=== PATIENT | female | born 2000 | race Caucasian/White ===

== ENCOUNTER 2021-08-23 18:53 | Emergency (ER) | payer SELFPAY ==
[2021-08-23 18:55] VITALS: BP 118/69; PULSE 64; RESP 18; TEMP 35.8; O2SAT 98
--- NOTE | 2021-08-23 19:18 | PC.NURSE ---
Assisted Dr. Hough with rectal exam.
[2021-08-23 19:28] VITALS: BP 119/70; PULSE 63; RESP 16; O2SAT 100
--- NOTE | 2021-08-23 19:32 | ED.GENADULT ---
HPI - General Adult General Chief complaint: Unspecified Stated complaint: Abd Pain, Nausea Time Seen by Provider: 08/23/21 19:11 Source: patient History of Present Illness HPI narrative: Patient presents with rectal pain. Reports a history of skin tags and hemorrhoids. She was previously evaluated approximately 3 years ago and was instructed to further work[facility]up at [facility] at that time. This current episode has been going on for approximately 3 days. Shortness pain around her rectum sharp constant worse with having a bowel movement, no radiation. She denies any bloody stools denies any nausea vomiting or fevers. Denies any abdominal pain Related Data Allergies Allergy/AdvReac Type Severity Reaction Status Date / Time No Known Allergies Allergy Verified 08/23/21 19:30 Review of Systems Review of Systems: CONSTITUTIONAL: Denies fever, chills, or sweats. EYES: Denies visual changes, redness, or discharge. ENT: Denies rhinorrhea, congestion, sore throat, or otalgia. CARDIOVASCULAR: Denies chest pain, palpitations, or edema. RESPIRATORY: Denies cough or dyspnea. GASTROINTESTINAL: Denies abdominal pain, nausea, vomiting, or diarrhea. GENITOURINARY: Denies dysuria or hematuria. SKIN: Denies rash or itching. MUSCULOSKELETAL: Denies back pain, joint pain, or myalgia. NEUROLOGIC: Denies headache, numbness, dizziness, or weakness. PSYCHIATRIC: Denies anxiety or depression. All systems reviewed & are unremarkable except as noted in HPI and below PMFSH Past Medical History Medical History (Updated 08/23/21 @ 19:39 by Chava Hough MD) Acute hemorrhoid Social History Social History (Updated 08/23/21 @ 19:34 by Chava Hough MD) Substance use type: does not use Exam Narrative: GENERAL: Well-appearing, well-nourished, and in no acute distress. HEAD: Normocephalic, atraumatic. EYES: PERRLA and EOMI. ENT: Nares clear, no rhinorrhea or epistaxis. Mucous membranes moist. NECK: Supple. No masses. No JVD ABDOMEN: Soft, nontender, nondistended, normal active bowel sounds. RECTAL: Multiple large tender hemorrhoids nonthrombosed. EXTREMITIES: Normal range of motion. No edema. SKIN: Warm, dry, no rash. NEURO: No focal deficits. Alert and oriented x3. PSYCH: Normal mood and affect. Course Vital Signs Vital signs: Vital Signs Temperature 35.8 C L 08/23/21 18:55 Pulse Rate 64 08/23/21 18:55 Respiratory Rate 18 08/23/21 18:55 Blood Pressure 118/69 08/23/21 18:55 Pulse Oximetry 98 08/23/21 18:55 Temperature 35.8 C L 08/23/21 18:55 Pulse Rate 76 08/23/21 19:55 Respiratory Rate 16 08/23/21 19:55 Blood Pressure 102/66 08/23/21 19:55 Pulse Oximetry 98 08/23/21 19:55 Medical Decision Making MDM Narrative Medical decision making narrative: H&P as above, vss, pt looks clinically well, exam with multiple large tender hemorrhoids, labs/img considered, symptomatic relief available as needed, on reevaluation pt continues to looks clinically well. Suspect hemorrhoids, dns thrombosed or infected hemorrhoids not suspect significant hemorrhage.. plan to tx/monitor as op w/ pcm and specielty f/u findings/plan discussed with pt, pt agree/comfortable with plan, return precautions given Vital Signs Vital Signs: Vital Signs Temperature 35.8 C L 08/23/21 18:55 Pulse Rate 64 08/23/21 18:55 Respiratory Rate 18 08/23/21 18:55 Blood Pressure 118/69 08/23/21 18:55 Pulse Oximetry 98 08/23/21 18:55 Temperature 35.8 C L 08/23/21 18:55 Pulse Rate 76 08/23/21 19:55 Respiratory Rate 16 08/23/21 19:55 Blood Pressure 102/66 08/23/21 19:55 Pulse Oximetry 98 08/23/21 19:55 Discharge Plan Discharge Clinical Impression: Acute hemorrhoid Patient Disposition: Home, Self-Care Condition: Improved Instructions: Antibiotic Form, Hemorrhoids (ED) Additional Instructions: Please return if your symptoms worsen or fail to improve. If you develop a fever, can not eat/drink
[2021-08-23 19:55] VITALS: BP 102/66; PULSE 76; RESP 16; O2SAT 98
== END 2021-08-23 19:55 | disposition home or self-care (01) ==
PROVIDERS: Emergency Provider Emergency Medicine
DX: K64.9 Unspecified hemorrhoids (principal)
CPT/HCPCS: 99283

== ENCOUNTER 2022-04-07 11:58 | Emergency (ER) | payer SELFPAY ==
[2022-04-07 12:08] VITALS: BP 120/59; PULSE 90; RESP 16; TEMP 36.6; O2SAT 100
[2022-04-07 12:14] VITALS: BP 120/59; PULSE 90; RESP 16; TEMP 36.6; O2SAT 100
--- NOTE | 2022-04-07 12:17 | ED.URI ---
HPI - URI/Sore Throat General Chief Complaint: Upper Respiratory Infection Stated Complaint: swollen throat; body ache; lack of appetiete Time Seen by Provider: 04/07/22 12:17 Source: patient Mode of arrival: ambulatory Limitations: no limitations History of Present Illness HPI Narrative: Rayshawn is a 21-year-old female patient presenting to clinic today with complaints of sore throat, body aches, and decreased appetite x3 days. She reports she is able to keep fluids and fluids down however she is having a lot of pain with swallowing. she also reports that she has 45 days late for her period and is concerned she may be MD elicited complaint: sore throat and nasal congestion Related Data Home Medications Medication Instructions Recorded Confirmed norethindrone (contraceptive) 0.35 0.35 mg PO DAILY 04/07/22 04/07/22 mg tablet (Marita) Allergies Allergy/AdvReac Type Severity Reaction Status Date / Time No Known Allergies Allergy Verified 04/07/22 12:12 Review of Systems Review of Systems: Pertinent positives per HPI. Patient denies any fever, chills, rash, headache, visual changes, dizziness, cough, shortness of breath, chest pain, palpitations, nausea, vomiting, diarrhea, constipation, abdominal pain, or any urinary issues. [facility] Past Medical History Medical History Acute hemorrhoid Social History Social History Substance use type: does not use Comments At the time of my signature, I reviewed and agree with the nursing past medical, surgical, social, and family history. There is no relevant family history pertinent to the patient complaint. Exam Narrative: General: Well-developed, well nourished, in no apparent distress Head: Normocephalic, atraumatic Eyes: Pupils equally round and reactive to light bilaterally, EOM intact, sclera and conjunctive clear, no discharge, lids normal Ears: TMs intact and clear, ear canals clear, no drainage, grossly hearing normal. Nose: Nares patent, no discharge, no inflammation, no sinus tenderness. Mouth: Oral pharynx without lesions or masses, good dentition, MMM. Oropharynx red with bilateral tonsillar swelling Neck: Supple, trachea midline,enlargement of anterior cervical nodes, no thyroid masses or goiter palpable. Cardio: Regular rate and rhythm, s1 and s2 normal, no murmur appreciated. Resp: Clear to auscultation bilaterally, no rhonchi, rales, wheezing or rubs Course Course Emergency Course: Portions of this record may have been created with voice recognition software. Level of Care: Express Care Visit Vital Signs Vital signs: Vital Signs Temperature 36.6 C 04/07/22 12:08 Pulse Rate 90 04/07/22 12:08 Respiratory Rate 16 04/07/22 12:08 Blood Pressure 120/59 L 04/07/22 12:08 Pulse Oximetry 100 04/07/22 12:08 Oxygen Delivery Room Air 04/07/22 12:08 Temperature 36.6 C 04/07/22 12:14 Pulse Rate 90 04/07/22 12:14 Respiratory Rate 16 04/07/22 12:14 Blood Pressure 120/59 L 04/07/22 12:14 Pulse Oximetry 100 04/07/22 12:14 Oxygen Delivery Room Air 04/07/22 12:14 Vital signs reviewed MDM - URI/Sore Throat MDM Narrative Medical decision making narrative: At the time of visit patient is resting comfortably on the exam table. Strep screen was positive in the clinic today. Urine preg test was negative in the clinic today. I suspect patient has strep throat and mist. Prescription for amoxicillin was sent to the pharmacy and supportive measures were discussed with the patient and she voiced understanding of discharge instructions Differential Diagnosis Differential diagnosis: Likely upper respiratory infection, otitis media, sinusitis, viral infection, bronchitis, influenza, pharyngitis and other ( COVID) Lab Data Labs: UCG Bedside Result Negative
== END 2022-04-07 12:36 | disposition home or self-care (01) ==
PROVIDERS: Emergency Provider Nurse Practitioner Family
DX: J02.0 Streptococcal pharyngitis (principal); N91.2 Amenorrhea, unspecified
CPT/HCPCS: 81025; 87880; 99213; G0463

== ENCOUNTER 2022-10-20 18:20 | Emergency (ER) | payer MEDICAID, SELFPAY ==
[2022-10-20 18:20] VITALS: BP 123/74; PULSE 100; RESP 18; TEMP 36.8; O2SAT 99
--- NOTE | 2022-10-20 19:36 | ED.GENADULT ---
HPI - General Adult General Chief complaint: Unspecified Stated complaint: left breast pain and swelling Time Seen by Provider: 10/20/22 19:26 History of Present Illness HPI narrative: Patient is a 21-year-old female presenting with left breast pain. Patient states that she has had swelling in the lateral aspect of the left breast for approximately 1 to 2 months. States that she recently stopped control. States that she has had pain in this area and can feel bumps. No redness, fevers, discharge. She denies further complaints. Related Data Home Medications Medication Instructions Recorded Confirmed norethindrone (contraceptive) 0.35 0.35 mg PO DAILY 04/07/22 04/07/22 mg tablet (Marita) Allergies Allergy/AdvReac Type Severity Reaction Status Date / Time No Known Allergies Allergy Verified 10/20/22 19:19 Review of Systems Review of Systems: All systems reviewed & are unremarkable except as noted in HPI and below PMFSH Past Medical History Medical History Acute hemorrhoid Social History Social History Substance use type: does not use Exam Narrative: GENERAL: Well-appearing, well-nourished, and in no acute distress. HEAD: Normocephalic, atraumatic. EYES: PERRLA and EOMI. ENT: Nares clear, no rhinorrhea or epistaxis. Mucous membranes moist. NECK: Supple. CHEST: No respiratory distress. left breast with small mobile nodules especially laterally, mildly tender with palpation, no erythema, no nipple discharge, no lymph node enlargement HEART: Regular rate and rhythm ABDOMEN: nondistended EXTREMITIES: Normal range of motion. No edema. SKIN: Warm, dry, no rash. NEURO: No focal deficits. Alert and oriented x3. PSYCH: Normal mood and affect. Course Vital Signs Vital signs: Vital Signs Temperature 98.3 F 10/20/22 18:20 Pulse Rate 100 10/20/22 18:20 Respiratory Rate 18 10/20/22 18:20 Blood Pressure 123/74 10/20/22 18:20 Pulse Oximetry 99 10/20/22 18:20 Temperature 98.3 F 10/20/22 18:20 Pulse Rate 100 10/20/22 18:20 Respiratory Rate 18 10/20/22 18:20 Blood Pressure 123/74 10/20/22 18:20 Pulse Oximetry 99 10/20/22 18:20 Medical Decision Making MDM Narrative Medical decision making narrative: Patient is a 21-year-old female presenting with several months of left breast pain and swelling. Vitals are within normal limits. Exam remarkable for the above. She denies any skin changes, discharge, systemic symptoms. Her exam is consistent with fibrocystic changes involving her left breast. Feel she is safe for outpatient management. Advised Tylenol and ibuprofen for pain control. Advise close OB follow-up. Appropriate return precautions given. Discharged in stable condition. Differential Diagnosis Differential Diagnosis: Fibrocystic changes, breast pain, mastitis, cellulitis Medical Records Medical records reviewed: Yes I reviewed the external patient's medical records. Vital Signs Vital Signs: Vital Signs Temperature 98.3 F 10/20/22 18:20 Pulse Rate 100 10/20/22 18:20 Respiratory Rate 18 10/20/22 18:20 Blood Pressure 123/74 10/20/22 18:20 Pulse Oximetry 99 10/20/22 18:20 Temperature 98.3 F 10/20/22 18:20 Pulse Rate 100 10/20/22 18:20 Respiratory Rate 18 10/20/22 18:20 Blood Pressure 123/74 10/20/22 18:20 Pulse Oximetry 99 10/20/22 18:20 Lab Data Lab results reviewed: Yes I reviewed the patient's lab results. Labs: UCG Bedside Result Negative Reference Range: Negative Critical Care Time Critical Care Time Critical Care Time: No Discharge Plan Discharge Clinical Impression: Breast pain, left Patient Disposition: Home, Self-Care Condition: Stable Instructions: Antibiotic Form, Fibrocystic Breast Ch
[2022-10-20] MEDS: IBUPROFEN 400 MG TABLET 800 MG PO (19:54)
[2022-10-20] MEDS: ACETAMINOPHEN 500 MG TABLET 1000 MG PO (19:55)
== END 2022-10-20 20:51 | disposition home or self-care (01) ==
PROVIDERS: Emergency Provider Emergency Medicine
DX: N64.4 Mastodynia (principal)
CPT/HCPCS: 81025; 99283; A9270

== ENCOUNTER 2023-08-20 10:53 | Outpatient (CLI) | payer OTHER, SELFPAY ==
[2023-08-20 11:27] LABS: Basophils Percent Auto 0.7 % (0.2-1.2); Eosinophils Absolute Auto 0.1 K/mm3 (0-0.3); Eosinophils Percent Auto 0.9 % (0-4.4); Hematocrit 42.2 % (37.0-47.0); Hemoglobin 14.3 g/dL (12.0-15.0); Immature Granulocyte Absolute 0.01 K/mm3 (0.00-0.031); Immature Granulocyte Percent A 0.2 % (0-0.5); Lymphocytes Absolute Auto 1.66 K/mm3 (0.9-3.2); Lymphocytes Percent Auto 28.4 % (18.3-44.2); Mean Corpuscular HGB Conc 33.9 g/dl (32-36); Mean Corpuscular Hemoglobin 30.2 pg (26-34); Mean Platelet Volume 10.9 fl (7.4-10.4); Monocytes Absolute Auto 0.3 K/mm3 (0.1-0.6); Monocytes Percent Auto 5.6 % (2.6-8.5); Neutrophils Absolute Auto 3.8 K/mm3 (1.3-6.7); Neutrophils Percent Auto 64.2 % (45.5-73.1); Platelet Count Result 313 k/mm3 (150-375); Red Blood Count 4.74 M/mm3 (4.2-5.4); Red Cell Distribution Width 11.6 % (11.5-14.5); White Blood Count 5.9 K/mm3 (4.5-10.0)
[2023-08-20 11:36] LABS: Cholesterol 174 mg/dL (0-200); HDL Direct 49 mg/dL; Triglycerides 156 mg/dL (<150)
[2023-08-20 11:37] LABS: Alanine Aminotransferase 15 U/L (6-35); Alkaline Phosphatase 52 U/L (38-126); Anion Gap 11 mmol/L (4-12); Aspartate Amino Transferase 23 U/L (14-36); Bilirubin,Total 0.5 mg/dL (0.2-1.3); Blood Urea Nitrogen 9 mg/dL (7-17); Calcium 9.7 mg/dL (8.4-10.2); Carbon Dioxide 23 mmol/L (22-30); Chloride 105 mmol/L (98-107); Estimated Glomerular Filt Rate > 60; Glucose 92 mg/dL (65-110); Potassium 3.6 mmol/L (3.4-5.0); Sodium 139 mmol/L (137-145)
[2023-08-20 11:47] LABS: LDL Cholesterol Direct 103 mg/dL
[2023-08-23 16:14] LABS: H pylori, Urea Breath NOT DETECTED (NOT DETECTED)
== END 2023-08-20 10:54 | disposition home or self-care (01) ==
LOC: ANHLAB 10:53
PROVIDERS: PCP Nurse Practitioner Family; Referring Provider Nurse Practitioner Family; Visit Provider Nurse Practitioner Family
DX: N92.0 Excessive and frequent menstruation with regular cycle (principal); Z13.220 Encounter for screening for lipoid disorders
CPT/HCPCS: 36415; 80053; 80061; 83013; 84443; 85025

== ENCOUNTER 2023-10-08 00:26 | Day surgery (SDC) | payer OTHER, SELFPAY ==
[2023-09-23 10:21] VITALS: BMI 18.8
[2023-10-08 12:08] VITALS: BP 105/71; PULSE 94; RESP 17; TEMP 36.5; O2SAT 98; BMI 18.8
[2023-10-08] MEDS: LACTATED RINGERS 1,000 ML 150 ML IV CONT (12:29)
--- NOTE | 2023-10-08 12:39 | WPDANESEPPF ---
Anes - Initial Pre Proc Eval Procedure: Operation Date: 10/08/23 13:30 Proposed Procedures p Esophagogastroduodenoscopy & Colonoscopy - Fabrice San MD Date/Time: 10/08/23 12:39 Surgeon: Fabrice San MD Pre Op Diagnosis: Abdominal distension, constipation, Persons encoun Patient Data Age: 22 Gender: F Height: 1.47 m Weight: 40.9 kg Last Vital Signs Temp 97.7 F 10/08/23 12:08 Pulse 94 10/08/23 12:08 Resp 17 10/08/23 12:08 BP 105/71 10/08/23 12:08 Pulse Ox 98 10/08/23 12:08 O2 Del Method Room Air 10/08/23 12:08 Allergies Allergy/AdvReac Type Severity Reaction Status Date / Time No Known Allergies Allergy Verified 10/08/23 12:07 Home Medications Medication Instructions Recorded Confirmed Type etonogestrel 0.12 mg-ethinyl 1 vag ring vaginal ONCE #3 ea 06/25/23 10/08/23 Rx estradiol 0.015 mg/24 hr vaginal ring (NuvaRing) linaclotide 72 mcg capsule 72 mcg PO DAILY 1 month #30 caps 09/08/23 10/08/23 Rx (Linzess) omeprazole 20 mg capsule,delayed 20 mg PO BID 1 month #60 caps 09/08/23 10/08/23 Rx release Patient hx anesthesia problems: none Family hx anesthesia problems: none Results Review: All pre-operative results and documents have been reviewed as part of the pre-operative evaluation. [facility] Past Medical History Medical History Acute hemorrhoid Bloating Constipation Nausea Surgical History Surgical History History of placement of ear tubes Family History Family History Father Heart problem Alcoholism Mother Alcoholism Social History Social History (Updated 10/01/23 @ 10:47 by Aviva To APRN) Smoking status: Former smoker Tobacco type: e-cigarettes/vaping Smoking end date: 09/29/23 Additional smoking assessment comments: Has tried to quit previously. Has vaped for 5 years. Alcohol intake: current Alcohol use details: Did not list frequency. Substance use type: does not use Do You Feel Safe in your Home?: Yes Lack of Transportation: No Lack of Food: Never True Current Housing: I Have Housing Concerned About Future Housing: No Difficulty Paying Gas/Electric Bills: No Difficulty Paying for Meds: No Currently Unemployed: No Education: High School Diploma/GED Difficulty w/ Childcare or Family Care: No Living arrangements: with family Occupation/Education: unemployed Spiritual care concerns: No Anes - Eval Final PreProcedure Day of Procedure 10/08/23 12:39 Patient weight: normal Heart: regular rate and rhythm Lungs: clear to auscultation Airway: Mallampati scale class II Neurological: alert and oriented Last oral intake: >/= 8 hours ASA classification: II Emergent: no Anesthetic plan: proceed Anesthesia type and monitoring: general GIVS and standard monitoring Results Review: All pre-operative results and documents have been reviewed as part of the pre-operative evaluation. Informed Consent: The patient's anesthetic plan and its attendant risks and benefits were discussed with the patient/family/POA. Questions were solicited and answers provided to the satisfaction of the patient/family/POA.
--- NOTE | 2023-10-08 12:58 | PM.HPGS ---
History of Present Illness History of Present Illness Consent: Risks, benefits, and alternatives have been discussed and questions answered. Patient agrees to proceed with procedure. Chief complaint: Abdominal distension, constipation, Persons encoun Narrative: Rayshawn Palumbo is a 22 year old female here for first egd and colonoscopy, she has gerd on ppi bid, also constipation on linzess. Review of Systems Review of Systems: All systems reviewed & are unremarkable except as noted in HPI and below PMFSH Past Medical History Medical History (Updated 10/08/23 @ 12:59 by Fabrice San MD) Acute hemorrhoid Bloating Constipation GERD (gastroesophageal reflux disease) Nausea Surgical History Surgical History History of placement of ear tubes Family History Family History Father Heart problem Alcoholism Mother Alcoholism Social History Social History (Updated 10/01/23 @ 10:47 by Aviva To APRN) Smoking status: Former smoker Tobacco type: e-cigarettes/vaping Smoking end date: 09/29/23 Additional smoking assessment comments: Has tried to quit previously. Has vaped for 5 years. Alcohol intake: current Alcohol use details: Did not list frequency. Substance use type: does not use Do You Feel Safe in your Home?: Yes Lack of Transportation: No Lack of Food: Never True Current Housing: I Have Housing Concerned About Future Housing: No Difficulty Paying Gas/Electric Bills: No Difficulty Paying for Meds: No Currently Unemployed: No Education: High School Diploma/GED Difficulty w/ Childcare or Family Care: No Living arrangements: with family Occupation/Education: unemployed Spiritual care concerns: No Meds Home Medications and Allergies Home Medications Medication Instructions Recorded Confirmed Type etonogestrel 0.12 mg-ethinyl 1 vag ring vaginal ONCE #3 ea 06/25/23 10/08/23 Rx estradiol 0.015 mg/24 hr vaginal ring (NuvaRing) linaclotide 72 mcg capsule 72 mcg PO DAILY 1 month #30 caps 09/08/23 10/08/23 Rx (Linzess) omeprazole 20 mg capsule,delayed 20 mg PO BID 1 month #60 caps 09/08/23 10/08/23 Rx release Allergies Allergy/AdvReac Type Severity Reaction Status Date / Time No Known Allergies Allergy Verified 10/08/23 12:07 Vital Signs Vital Signs - 24 hr 10/08/23 12:08 Temperature 97.7 F Pulse Rate 94 Respiratory Rate 17 Blood Pressure 105/71 Pulse Oximetry 98 Oxygen Delivery Room Air Exam Const: General: comfortable and no acute distress HENMT: Face/Nose/Sinus: Normal nares present Eyes: General: appearance normal, both eyes and all related structures Neck: Neck: no JVD Resp: Auscultation: clear to auscultation bilaterally Cardio: Rate: regular rate Rhythm: regular rhythm GI: Inspection: non-distended GI Palp: Yes Soft to palpation Skin: General skin exam: normal color Neuro: General: gait normal Speech: normal speech Extrem: General: normal to inspection Psych: Mental Status: mental status grossly normal Assessment and Plan Assessment and plan (1) GERD (gastroesophageal reflux disease): Code(s): K21.9 - Gastro-esophageal reflux disease without esophagitis Status: Acute Assessment and Plan: egd with bx (2) Constipation: Qualifiers: Constipation type: unspecified constipation type Qualified Code(s): K59.00 - Constipation, unspecified Code(s): K59.00 - Constipation, unspecified Status: Acute Assessment and Plan: colonoscopy (3) Bloating: Code(s): R14.0 - Abdominal distension (gaseous) Status: Acute
--- NOTE | 2023-10-08 13:00 | SUR.OPER ---
EGD: START-1300, END-1303 COLON: START-1307 END-1315
[2023-10-08 13:17] VITALS: BP 86/45; PULSE 80; RESP 17; O2SAT 100
[2023-10-08 13:27] VITALS: BP 91/29; PULSE 76; RESP 17; O2SAT 100
[2023-10-08 13:37] VITALS: BP 83/47; PULSE 86; RESP 17; O2SAT 100
== END 2023-10-08 13:52 | disposition home or self-care (01) ==
PROVIDERS: PCP Nurse Practitioner Family; Referring Provider Nurse Practitioner Family; Visit Provider Internal Medicine Gastroenterology
PROC: 0DJ08ZZ Inspection of Upper Intestinal Tract, Via Natural or Artificial Opening Endoscopic (ICD-10-PCS; CPT 43235; principal; 2023-10-08 13:30)
DX: R14.0 Abdominal distension (gaseous) (principal); K29.50 Unspecified chronic gastritis without bleeding; K21.9 Gastro-esophageal reflux disease without esophagitis; K64.4 Residual hemorrhoidal skin tags; K64.8 Other hemorrhoids; D12.8 Benign neoplasm of rectum; K59.00 Constipation, unspecified; Z87.891 Personal history of nicotine dependence
CPT/HCPCS: 43239; 45380; 88305; J2704; J7120

== ENCOUNTER 2024-06-09 10:43 | Outpatient (CLI) | payer OTHER, SELFPAY ==
--- NOTE | ~2024-06-09 | XR_ITS ---
XR hip BI 2V w AP pelvis Ordering provider: Aviva To APRN History: . M25.559 - Pain in unspecified hip . Comparison: None. FINDINGS: BONES: No acute fracture or dislocation. HIP JOINT SPACES: Normal. SACROILIAC JOINT SPACES/LUMBAR SPINE: The sacroiliac joint spaces are normal. Normal visualized lower lumbar spine. PUBIC SYMPHYSIS: Normal. SOFT TISSUES: Normal. IMPRESSION: No acute osseous abnormality of the bilateral hips and pelvis. Reviewed, dictated and finalized at location A. [employer]
[2024-06-09 12:15] LABS: Basophils Absolute Auto 0.1 K/mm3 (0.0-0.1); Basophils Percent Auto 0.7 % (0.2-1.2); Eosinophils Absolute Auto 0.1 K/mm3 (0-0.3); Eosinophils Percent Auto 0.5 % (0-4.4); Hematocrit 44.9 % (37.0-47.0); Hemoglobin 14.9 g/dL (12.0-15.0); Immature Granulocyte Absolute 0.03 K/mm3 (0.00-0.031); Immature Granulocyte Percent A 0.3 % (0-0.5); Lymphocytes Absolute Auto 2.15 K/mm3 (0.9-3.2); Lymphocytes Percent Auto 22.8 % (18.3-44.2); Mean Corpuscular HGB Conc 33.2 g/dl (32-36); Mean Corpuscular Hemoglobin 29.4 pg (26-34); Mean Corpuscular Volume 88.7 fl (80-100); Mean Platelet Volume 10.7 fl (7.4-10.4); Monocytes Absolute Auto 0.4 K/mm3 (0.1-0.6); Monocytes Percent Auto 4.6 % (2.6-8.5); Neutrophils Absolute Auto 6.7 K/mm3 (1.3-6.7); Neutrophils Percent Auto 71.1 % (45.5-73.1); Platelet Count Result 367 k/mm3 (150-375); Red Blood Count 5.06 M/mm3 (4.2-5.4); Red Cell Distribution Width 12.3 % (11.5-14.5); White Blood Count 9.5 K/mm3 (4.5-10.0)
[2024-06-09 12:33] LABS: Alanine Aminotransferase 13 U/L (6-35); Albumin Level 4.8 g/dL (3.5-5.1); Alkaline Phosphatase 63 U/L (38-126); Anion Gap 13 mmol/L (4-12); Aspartate Amino Transferase 19 U/L (14-36); Bilirubin,Total 0.3 mg/dL (0.2-1.3); Blood Urea Nitrogen 8 mg/dL (7-17); Calcium 9.8 mg/dL (8.4-10.2); Carbon Dioxide 23 mmol/L (22-30); Chloride 103 mmol/L (98-107); Estimated Glomerular Filt Rate > 60; Glucose 95 mg/dL (65-110); Potassium 4.1 mmol/L (3.4-5.0); Sodium 139 mmol/L (137-145); Uric Acid 4.3 mg/dL (2.5-7.5)
[2024-06-09 12:38] LABS: Rheumatoid Factor < 12.0 IU/ML (<12)
[2024-06-09 12:42] LABS: Vitamin D 25 Hydroxy 22.1 ng/mL
[2024-06-09 14:20] LABS: Erythrocyte Sedimentation Rate 15 mm/hr (0-20)
[2024-06-12 13:54] LABS: Anti Cyclic Citrullinated Pept <16 UNITS
[2024-06-13 12:13] LABS: Anti Nuclear Antibody Pattern Nuclear, Homogeneous
== END 2024-06-09 10:44 | disposition home or self-care (01) ==
PROVIDERS: PCP Nurse Practitioner Family; Visit Provider Nurse Practitioner Family
DX: M25.50 Pain in unspecified joint (principal); G89.29 Other chronic pain; M25.559 Pain in unspecified hip
CPT/HCPCS: 36415; 73521; 80053; 82306; 84550; 85025; 85652; 86038; 86039; 86200; 86430

== ENCOUNTER 2024-06-23 09:25 | Outpatient (CLI) | payer OTHER, SELFPAY ==
--- NOTE | ~2024-06-23 | US_ITS ---
EXAM: PELVIC ULTRASOUND, transabdominal and transvaginal HISTORY: R10.2 - Pelvic and perineal pain . 2 para 0 COMPARISON: None. FINDINGS: UTERUS: 6.6 x 2.7 x 2.8 cm. The uterus is anteverted and anteflexed. The endometrial complex measures 7.4 mm., And is trilaminar RIGHT OVARY: The right ovary is unremarkable in echogenicity and size measuring 3.4 x 3.4 x 1.6 cm. Dopplerable flow is identified. Dominant follicle within the right ovary LEFT OVARY: The left ovary is unremarkable in echogenicity and size measuring 3.4 x 2.4 x 1.7 cm Dopplerable flow is identified. No free fluid is identified within the pelvis. IMPRESSION: Unremarkable sonographic evaluation of the pelvis, as detailed above. Reviewed, dictated and finalized at location A.
== END 2024-06-23 09:26 | disposition home or self-care (01) ==
LOC: ANHIMG 09:26
PROVIDERS: PCP Nurse Practitioner Family; Visit Provider Nurse Practitioner Family
DX: R10.2 Pelvic and perineal pain (principal); M25.50 Pain in unspecified joint
CPT/HCPCS: 76830; 76856